=== PATIENT | female | born 1950 | race Caucasian/White ===

== ENCOUNTER → 2016-06-18 | Outpatient (CLI) | payer BC | LOC: KOH-I 11:09 | DX: J18.9 Pneumonia, unspecified organism (principal) | CPT/HCPCS: 71020 ==

== ENCOUNTER → 2016-10-23 | Outpatient (CLI) | payer BC | LOC: KOH-I 10:45 | DX: J18.9 Pneumonia, unspecified organism (principal); R91.1 Solitary pulmonary nodule | CPT/HCPCS: 71020 ==

== ENCOUNTER → 2020-04-14 | Outpatient (CLI) | payer MEDICARE ==
[~2020-04-14] MED LIST: LAMISIL TAB 25250 MG PO; LEVOCETIRIZINE D5 MG PO
== END ==
LOC: KOH-I 14:01
DX: S69.92XA Unspecified injury of left wrist, hand and finger(s), initial encounter (principal); M19.032 Primary osteoarthritis, left wrist; M19.042 Primary osteoarthritis, left hand; X58.XXXA Exposure to other specified factors, initial encounter
CPT/HCPCS: 73110; 73130